=== PATIENT | male | born 1955 | race Two or more races ===

== ENCOUNTER 2016-04-29 18:23 | Emergency (ER) | payer BC ==
[2016-04-29 18:40] VITALS: RESP 16
--- NOTE | 2016-04-29 18:42 | CPEKG ---
Heart Rate: 56 RR Interval: 1071 P-R Interval: 192 QRSD Interval: 122 QT Interval: 436 QTC Interval: 421 P [place]: 41 QRS [place]: 41 T Wave [place]: 48 EKG Severity - ABNORMAL ECG - EKG Impression: SINUS RHYTHM EKG Impression: NONSPECIFIC INTRAVENTRICULAR CONDUCTION DELAY EKG Impression: Unchanged from previous Electronically Signed By: Mamadou Sharp 29-Apr-2016 19:04:26
[2016-04-29] MEDS ORDERED: NS 1,000 ML IV ONE (18:53)
--- NOTE | 2016-04-29 19:01 | EDPHY ---
H & P Stated Complaint: Chills x 3 hours;arms shakey/numb;Scheduled for card cath next week Time Seen by Provider: 04/29/16 18:38 HPI/ROS: CHIEF COMPLAINT: Chills HISTORY OF PRESENT ILLNESS: Patient is a 60-year-old man who comes to the emergency department complaining of chills and bilateral arm tingling intermittently over the last 2 hours. He states that he was sitting at the computer after dinner when they began. This feels similar to something he had in 2015 prior to his initial myocardial infarction complicated by a failed catheterization and subsequent 3 vessel CABG. He states that they have been following his cardiac function since that time and he has had steadily decreasing heart efficiency. According to the medical record he did have a stress test last year that revealed a large lateral infarct with a decreased ejection fraction. Echo however showed a unchanged ejection fraction of 35%. He has a cardiac catheterization scheduled with Dr. Lennon on Sunday for further evaluation. He is currently asymptomatic. He has not had a fever. He did have a mild sore throat this morning but has not since. No cough runny nose or shortness of breath. No hyperventilation. REVIEW OF SYSTEMS: Constitutional: denies: chills, fever, recent illness, recent injury EENTM: denies: blurred vision, double vision, nose congestion Respiratory: denies: cough, shortness of breath Cardiac: See HPI Gastrointestinal/Abdominal: denies: abdominal pain, diarrhea, nausea, vomiting, blood streaked stools Genitourinary: denies: dysuria, frequency, hematuria, pain Musculoskeletal: denies: joint pain, muscle pain Skin: denies: lesions, rash, jaundice, bruising Neurological: denies: headache, numbness, paresthesia, tingling, dizziness, weakness Hematologic/Lymphatic: denies: blood clots, easy bleeding, easy bruising Immunologic/allergic: denies: HIV/AIDS, transplant EXAM: GENERAL: Well-appearing, well-nourished and in no acute distress. HEAD: Atraumatic, normocephalic. EYES: Pupils equal round and reactive to light, extraocular movements intact, sclera anicteric, conjunctiva are normal. ENT: TMs normal, nares patent, oropharynx clear without exudates. Moist mucous membranes. NECK: Normal range of motion, supple without lymphadenopathy or JVD. LUNGS: Breath sounds clear to auscultation bilaterally and equal. No wheezes rales or rhonchi. HEART: Regular rate and rhythm without murmurs, rubs or gallops. ABDOMEN: Soft, nontender, normoactive bowel sounds. No guarding, no rebound. No masses appreciated. BACK: No CVA tenderness, no spinal tenderness, step-offs or deformities EXTREMITIES: Normal range of motion, no pitting or edema. No clubbing or cyanosis. NEUROLOGICAL: Cranial nerves II through XII grossly intact. Normal speech, normal gait. 5/5 strength, normal movement in all extremities, normal sensation PSYCH: Normal mood, normal affect. SKIN: Warm, dry, normal turgor, no visible rashes or lesions. Source: Patient Exam Limitations: No limitations - Personal History Current Tetanus Diphtheria and Acellular Pertussis (TDAP): Unsure - Medical/Surgical History Hx Asthma: Yes Hx Chronic Respiratory Disease: No Hx Diabetes: No Hx Cardiac Disease: Yes Hx Renal Disease: No Hx Cirrhosis: No Hx Alcoholism: No Hx HIV/AIDS: No Hx Splenectomy or Spleen Trauma: No Other PMH: PMH: DC 2007; spinal stenosis L4-L5;. PSH: r knee - Family History Significant Family History: Hypertension - Social History Smoking Status: Never smoked Alcohol Use: Sober Drug Use: None Constitutional: Initial Vital Signs Temperature (C) 36.5 C 04/29/16 18:25 Heart Rate 59 L 04/29/16 18:25 Respiratory Rate 16 04/29/16 18:25 Blood Pressure 161/105 H 04/29/16 18:25 O2 Sat (%) 98 04/29/16 18:25 O2 Delivery Mode Room Air Allergies/Adverse Reactions: paroxetine HCl [From Paxil] Allergy (Intermediate, Verified 04/29/16 18:29) bad heartburn Penicillins Allergy (Intermediate, Verified 04/29/16 18:24) Hives atorvastatin calcium [From Lipitor] Allergy (Mild, Verified 04/29/16 18:29) muscle pain Home Medications: Medication Instructions Recorded Aspirin [Aspirin 81mg (*)] 81 mg PO DAILY@02/23/15 Lovastatin 20 mg PO DAILY@01/18/16 Clopidogrel Bisulfate [Plavix (*)] 75 mg PO DAILY@01/19/16 Carvedilol [Coreg (*)] 3.125 mg PO BIDMEAL #60 tab 01/20/16 Omeprazole Magnesium [Prilosec Otc] 20 mg PO DAILY #30 tablet. 01/20/16 AZITHROMYCIN [Z-PACK] 250 mg PO DAILY #4 tab 04/29/16 Supplements 04/29/16 Medical Decision Making - Diagnostics EKG Interpretation: An EKG obtained and was read and documented in trace view. Please see trace view for full reading and report., nonspecific interventricular conduction delay unchanged from previous . ED Course/Re-evaluation: The patient's x-ray is consistent with bronchitis. This is consistent with his chills. This does not explain his bilateral arm paresthesias although I suspect he was hyperventilating as does his . I will treat him with azithromycin. I offered observation and 2nd troponin but he is declined. They state they will return if he begins having chest pain symptoms or if his symptoms worsen. Differential Diagnosis: Partial list of the Differential diagnosis considered include but were not limited to; bronchitis, acute coronary disease, reflux and although unlikely based on the history and physical exam, I also considered anxiety, dissection, aneurysm, P. I discussed these differential diagnoses and the plan with the patient as well as the usual and expected course. The patient understands that the diagnosis is provisional and that in medicine we are not always correct and that further workup is often warranted. Usual and customary warnings were given. All of the patient's questions were answered. The patient was instructed to return to the emergency department should the symptoms at all worsen or return, otherwise to followup with the physician as we discussed. - Data Points Laboratory Results: Laboratory Results 04/29/16 18:45 04/29/16 18:45 04/29/16 04/29/16 04/29/16 Unknown 19:15 18:45 WBC 6.12 10^3/uL (3.80-9.50) RBC 5.07 10^6/uL (4.40-6.38) Hgb 16.1 g/dL (13.7-17.5) Hct 44.9 % (40.0-51.0) MCV 88.6 fL (81.5-99.8) MCH 31.8 pg (27.9-34.1) MCHC 35.9 g/dL (32.4-36.7) RDW 12.9 % (11.5-15.2) Plt Count 135 L 10^3/uL (150-400) MPV 13.5 H fL (8.7-11.7) Neut % (Auto) 64.2 % (39.3-74.2) Lymph % (Auto) 27.0 % (15.0-45.0) Leon % (Auto) 6.9 % (4.5-13.0) Eos % (Auto) 1.1 % (0.6-7.6) Baso % (Auto) 0.3 % (0.3-1.7) Nucleat RBC Rel Count 0.0 % (0.0-0.2) Absolute Neuts (auto) 3.93 10^3/uL (1.70-6.50) Absolute Lymphs (auto) 1.65 10^3/uL (1.00-3.00) Absolute Monos (auto) 0.42 10^3/uL (0.30-0.80) Absolute Eos (auto) 0.07 10^3/uL (0.03-0.40) Absolute Basos (auto) 0.02 10^3/uL (0.02-0.10) Absolute Nucleated RBC 0.00 10^3/uL (0-0.01) Immature Gran % 0.5 % (0.0-1.1) Immature Gran # 0.03 10^3/uL (0.00-0.10) PT 13.8 SEC (12.0-15.0) INR 1.07 (0.83-1.16) APTT 24.1 SEC (23.0-38.0) Sodium 142 mEq/L (134-144) Potassium 4.0 mEq/L (3.5-5.2) Chloride 108 mEq/L (97-110) Carbon Dioxide 23 mEq/l (22-31) Anion Gap 11 mEq/L (8-16) BUN 17 mg/dL (7-23) Creatinine 0.9 mg/dL (0.7-1.3) Estimated GFR > 60 Glucose 105 H mg/dL (70-100) Calcium 8.9 mg/dL (8.5-10.4) Troponin I 0.024 ng/mL (0-0.034) NT-Pro-B Natriuret Pep 138 H pg/mL (0-125) Influenza Typ A,B (DFA) NEGATIVE FOR FLU (NEGATIVE) Group A Strep Screen NEGATIVE (NEGATIVE) Group A Strep DNA Pending Medications Given: Discontinued Medications Azithromycin (Zithromax) 500 mg PO EDNOW ONE PRN Reason: Protocol Stop: 04/29/16 20:06 Last Admin: 04/29/16 20:14 Dose: 500 mg Sodium Chloride (Ns) 1,000 mls @ 0 mls/hr IV ONCE ONE PRN Reason: Wide Open Stop: 04/29/16 18:54 Last Admin: 04/29/16 19:13 Dose: 1,000 mls Departure - Departure Disposition: Home, Routine, Self-Care Clinical Impression: Bronchitis Condition: Fair Instructions: Acute Bronchitis (ED) Referrals: Benja Patel MD [Primary Care Provider] - As per Instructions Prescriptions: AZITHROMYCIN [Z-PACK] 250 mg PO DAILY #4 tab
[2016-04-29 19:05] LABS: % IMMATURE GRANULYOCYTES 0.5 % (0.0-1.1); ABSOLUTE IMMATURE GRANULOCYTES 0.03 10^3/uL (0.00-0.10); ADD DIFF? NO; ADD MORPH? NO; ADD SCAN? NO; ATYPICAL LYMPHOCYTE FLAG 0 (0-99); FRAGMENT RBC FLAG 0 (0-99); HEMATOCRIT 44.9 % (40.0-51.0); HEMOGLOBIN 16.1 g/dL (13.7-17.5); LEFT SHIFT FLG 0 (0-99); LIPEMIA HEMOLYSIS FLAG 90 (0-99); MEAN CELL HEMOGLOBIN 31.8 pg (27.9-34.1); MEAN CELL HEMOGLOBIN CONCENTR. 35.9 g/dL (32.4-36.7); MEAN CELL VOLUME 88.6 fL (81.5-99.8); MEAN PLATELET VOLUME 13.5 fL (8.7-11.7); PLATELET CLUMPS FLAG 20 (0-99); PLATELET COUNT 135 10^3/uL (150-400); RED BLOOD CELL COUNT 5.07 10^6/uL (4.40-6.38); RED CELL DISTRIBUTION WIDTH 12.9 % (11.5-15.2)
[2016-04-29 19:14] LABS: APTT 24.1 SEC (23.0-38.0); INR 1.07 (0.83-1.16); PROTIME(PATIENT) 13.8 SEC (12.0-15.0)
[2016-04-29 19:25] LABS: ANION GAP 11 mEq/L (8-16); CALCIUM 8.9 mg/dL (8.5-10.4); CARBON DIOXIDE 23 mEq/l (22-31); CHLORIDE 108 mEq/L (97-110); CREATININE 0.9 mg/dL (0.7-1.3); GLOMERULAR FILTRATION RATE > 60; GLUCOSE 105 mg/dL (70-100); SODIUM 142 mEq/L (134-144)
[2016-04-29 19:37] LABS: TROPONIN I 0.024 ng/mL (0-0.034)
--- NOTE | 2016-04-29 19:46 | DX ---
Chest, PA and Lateral April 29, 2016 History: Chest pain. Chills. Comparison: January 2016. Findings: Heart size is upper limits of normal and stable. Postsurgical changes are seen of prior ope n heart surgery. Mild peribronchial wall thickening is seen bilaterally. No evidence for acute airspa ce consolidation. No evidence for pleural effusion or pneumothorax. Impression: Mild bronchitis. No other findings for acute cardiopulmonary abnormality.
[2016-04-29] MEDS ORDERED: AZITHROMYCIN 250 MG TAB PO ONE ×2 (20:02→20:05)
[2016-04-29 20:04] VITALS: BP 119/88; PULSE 74; TEMP 98.2; O2SAT 96
== END 2016-04-29 20:14 | disposition home or self-care (01) ==
DX: J20.9 Acute bronchitis, unspecified (principal); I25.2 Old myocardial infarction; J45.909 Unspecified asthma, uncomplicated; Z79.82 Long term (current) use of aspirin

== ENCOUNTER 2016-05-03 09:08 | Day surgery (SDC) | payer BC ==
[2016-05-03] MEDS ORDERED: FAMOTIDINE 20 MG TAB PO ONE (09:11)
[2016-05-03] MEDS ORDERED: DIAZEPAM 5 MG TAB PO ONE (09:11)
[2016-05-03] MEDS ORDERED: ASPIRIN EC 325 MG TAB PO ONE ×2 (09:11→09:48)
[2016-05-03] MEDS ORDERED: diphenhydrAMINE 25 MG CAP PO ONE ×2 (09:11→09:48)
[2016-05-03] MEDS ORDERED: NS 1,000 ML IV ONE (09:11)
[2016-05-03] MEDS ORDERED: FAMOTIDINE 20 MG TAB ONE (09:48)
[2016-05-03] MEDS ORDERED: DIAZEPAM 5 MG TAB ONE (09:49)
[2016-05-03 09:54] LABS: % IMMATURE GRANULYOCYTES 0.3 % (0.0-1.1); ABSOLUTE IMMATURE GRANULOCYTES 0.01 10^3/uL (0.00-0.10); ADD DIFF? NO; ADD MORPH? NO; ADD SCAN? NO; ATYPICAL LYMPHOCYTE FLAG 0 (0-99); FRAGMENT RBC FLAG 0 (0-99); HEMATOCRIT 43.3 % (40.0-51.0); HEMOGLOBIN 15.4 g/dL (13.7-17.5); LEFT SHIFT FLG 0 (0-99); LIPEMIA HEMOLYSIS FLAG 90 (0-99); MEAN CELL HEMOGLOBIN 31.5 pg (27.9-34.1); MEAN CELL HEMOGLOBIN CONCENTR. 35.6 g/dL (32.4-36.7); MEAN CELL VOLUME 88.5 fL (81.5-99.8); PLATELET CLUMPS FLAG 0 (0-99); PLATELET COUNT 132 10^3/uL (150-400); RED BLOOD CELL COUNT 4.89 10^6/uL (4.40-6.38); RED CELL DISTRIBUTION WIDTH 12.8 % (11.5-15.2)
[2016-05-03 10:02] LABS: INR 1.1 (0.83-1.16); PROTIME(PATIENT) 14.1 SEC (12.0-15.0)
--- NOTE | 2016-05-03 10:04 | CPEKG ---
Heart Rate: 56 RR Interval: 1071 P-R Interval: 204 QRSD Interval: 120 QT Interval: 436 QTC Interval: 421 P [place]: 26 QRS [place]: 18 T Wave [place]: 31 EKG Severity - ABNORMAL ECG - EKG Impression: SINUS RHYTHM EKG Impression: PROBABLE LEFT ATRIAL ABNORMALITY EKG Impression: NONSPECIFIC INTRAVENTRICULAR CONDUCTION DELAY Electronically Signed By: Reena Brunner 03-May-2016 14:38:02
[2016-05-03 10:21] LABS: ANION GAP 9 mEq/L (8-16); CALCIUM 9.2 mg/dL (8.5-10.4); CARBON DIOXIDE 23 mEq/l (22-31); CHLORIDE 109 mEq/L (97-110); CHOLESTEROL 159 mg/dL (140-220); CHOLESTEROL/HDL RATIO 3.38 RATIO (1.00-4.97); CREATININE 0.9 mg/dL (0.7-1.3); GLOMERULAR FILTRATION RATE > 60; GLUCOSE 94 mg/dL (70-100); HIGH DENSITY LIPOPROTEIN 47 mg/dL (40-65); LDL/HDL RATIO 1.91 RATIO (1.00-3.64); LOW DENSITY LIPOPROTEIN 90 mg/dL (80-100); NON-HIGH DENSITY LIPOPROTEIN 112 mg/dL (90-129); POTASSIUM 4.2 mEq/L (3.5-5.2); SODIUM 141 mEq/L (134-144); TRIGLYCERIDE 110 mg/dL (40-150); VERY LOW DENSITY LIPOPROTEINS 22 mg/dL (8-25)
[2016-05-03] MEDS ORDERED: LIDOCAINE 1% 30 ML SDV ONE (12:00)
[2016-05-03] MEDS ORDERED: IOPAMIDOL (ISOVUE-370) 150 ML BTL IV ONE ×3 (12:01→12:44)
[2016-05-03] MEDS ORDERED: VERAPAMIL 5 MG/2 ML VIAL ONE (12:01)
[2016-05-03] MEDS ORDERED: fentaNYL 100 MCG/2 ML INJ ONE (12:04)
[2016-05-03] MEDS ORDERED: MIDAZOLAM 2 MG/2 ML VIAL ONE (12:05)
[2016-05-03] MEDS ORDERED: HEPARIN 10,000 UNIT/10 ML MDV ONE (12:05)
[2016-05-03] MEDS ORDERED: ATROPINE SULFATE 1 MG/10 ML SYR IVP PRN (13:42)
[2016-05-03] MEDS ORDERED: OXYCODONE/APAP 5/325 TAB PO PRN (13:42)
[2016-05-03] MEDS ORDERED: HYDROCODONE/APAP 5/325 TAB PO PRN (13:42)
[2016-05-03] MEDS ORDERED: NITROGLYCERIN 0.4 MG BTL SL PRN (13:42)
[2016-05-03] MEDS ORDERED: ONDANSETRON 4 MG/2 ML VIAL IVP PRN (13:42)
--- NOTE | 2016-05-03 13:54 | PDDXCAT ---
Diagnostic Cath Note - . Date: 05/03/16 Dental Practitioner: Saji High-risk criteria on non-invasive testing: severe resting left ventricular dysfunction (LVEF<35%) - Procedure Access: left wrist Procedure: left heart catheterization, coronary angiography, left ventriculogram , vein graft injection, LAGOS injection - Materials Left Heart Cath size: 5F Left Heart Cath materials: JL3.5, JR4.0, pigtail, other (VIRAJ catheter) - Findings-Left Heart Catheterization LM: Short unobstructed LAD: severe proximal ectasia with 100% occlusion in the midportion LCX: compared to prior angiogram the circumflex artery has recanalized. It is severely ectatic proximally with 85% critical stenosis at bifurcation. Diffuse distal disease with ectasia noted RCA: severely ectatic proximally with SOLO grade 2 flow. Diffuse luminal irregularities of up to 50%. rSVG: Saphenous vein graft to the PDA occluded. Saphenous vein graft to the LAD widely patent. LAGOS: Mammary artery to the circumflex widely patent EDP: 12mmHg LVEF: 40% Wall motion: inferior akinesis Complications: none Estimated blood loss: <50ml Closure method: TR Band Assessment: 1.multi-vessel ectatic atherosclerotic cardiovascular disease versus [place] is. 2. complete revascularization with patent mammary artery to the circumflex, patent vein graft to the LAD. 3. inferior akinesis with ejection fraction of 40% and normal filling pressures Plan: medical therapy. Patient Problems: Problems Problem Status Diagnosed Anemia due to acute blood loss Acute CAD (coronary artery disease), [place] coronary artery Acute Chest pain Acute Elevated troponin Acute Ischemic cardiomyopathy Acute NSTEMI (non-ST elevated myocardial infarction) Acute Thrombocytopenia due to blood loss Acute Chest pain at rest Acute
== END 2016-05-03 17:31 | disposition home or self-care (01) ==
LOC: FCATH 09:08
PROVIDERS: ATTEND Internal Medicine Interventional Cardiology
PROC: B2151ZZ Fluoroscopy of Left Heart using Low Osmolar Contrast (ICD-10-PCS; principal; 2016-05-03)
PROC: B2181ZZ Fluoroscopy of Left Internal Mammary Bypass Graft using Low Osmolar Contrast (ICD-10-PCS; principal; 2016-05-03)
PROC: B21F1ZZ Fluoroscopy of Other Bypass Graft using Low Osmolar Contrast (ICD-10-PCS; principal; 2016-05-03)
PROC: B2111ZZ Fluoroscopy of Multiple Coronary Arteries using Low Osmolar Contrast (ICD-10-PCS; principal; 2016-05-03)
PROC: 4A023N7 Measurement of Cardiac Sampling and Pressure, Left Heart, Percutaneous Approach (ICD-10-PCS; principal; 2016-05-03)
DX: I51.9 Heart disease, unspecified (principal); I25.10 Atherosclerotic heart disease of native coronary artery without angina pectoris; I10 Essential (primary) hypertension; E78.00 Pure hypercholesterolemia, unspecified; I25.2 Old myocardial infarction; Z95.1 Presence of aortocoronary bypass graft; Z79.82 Long term (current) use of aspirin; Z88.0 Allergy status to penicillin
CPT/HCPCS: J1644; J2250; J3010; Q9967

== ENCOUNTER 2018-01-22 06:31 | Day surgery (SDC) | payer BC ==
[2018-01-22] MEDS ORDERED: NS 1,000 ML IV ONE (06:32)
[2018-01-22] MEDS ORDERED: diphenhydrAMINE 25 MG CAP PO ONE ×2 (06:32→06:59)
[2018-01-22] MEDS ORDERED: DIAZEPAM 5 MG TAB PO ONE (06:32)
[2018-01-22] MEDS ORDERED: FAMOTIDINE 20 MG TAB PO ONE (06:32)
[2018-01-22] MEDS ORDERED: ASPIRIN EC 325 MG TAB PO ONE ×2 (06:32→07:00)
[2018-01-22] MEDS ORDERED: DIAZEPAM 5 MG TAB ONE (07:00)
[2018-01-22] MEDS ORDERED: FAMOTIDINE 20 MG TAB ONE (07:00)
[2018-01-22 07:15] LABS: PLATELET COUNT 120 10^3/uL (150-400)
[2018-01-22 07:24] LABS: INR 1.05 (0.83-1.16); PROTIME(PATIENT) 13.9 SEC (12.0-15.0)
[2018-01-22] MEDS ORDERED: fentaNYL 100 MCG/2 ML INJ ONE (07:51)
[2018-01-22] MEDS ORDERED: LIDOCAINE 1% 300 MG/30 ML SDV ONE (07:51)
[2018-01-22] MEDS ORDERED: VERAPAMIL 5 MG/2 ML VIAL ONE (07:52)
[2018-01-22] MEDS ORDERED: MIDAZOLAM 2 MG/2 ML VIAL ONE (07:52)
[2018-01-22] MEDS ORDERED: IOPAMIDOL (ISOVUE-370) 150 ML BTL IV ONE (07:52)
[2018-01-22] MEDS ORDERED: HEPARIN 10,000 UNIT/10 ML MDV (1,000 UNIT/ML) ONE (07:52)
--- NOTE | 2018-01-22 08:02 | PDPROPOC ---
Sedation Plan of Care Sedation Plan of Care: vital signs stable, mental status noted, patient educated of risks, benefits, alternatives, patient can tolerate sedation ASA Classification: ASA 2 Planned drugs: fentanyl, midazolam Mallampati Score: Class 2 Mallampati Reference Image: Patient passed 3-3-2 rule?: Yes
--- NOTE | 2018-01-22 08:02 | PDHPUP ---
History & Physical Update H&P update statement: This history and physical update is based on an assessment of the patient which was completed after admission or registration (within 24 hours), but prior to the surgery/procedure. H&P update: H&P reviewed & patient examined, no change in patient's condition since H&P completed
--- NOTE | 2018-01-22 08:56 | PDDXCAT ---
Diagnostic Cath Note - . Date: 01/22/18 Machine Chain Maker: Saji High-risk criteria on non-invasive testing: stress-induced mod-size perf defect w LV dilatation or inc lung uptake - Procedure Access: left wrist Procedure: left heart catheterization, coronary angiography, left ventriculogram , vein graft injection, LAGOS injection - Materials Left Heart Cath size: 5F Left Heart Cath materials: JL3.5, JR4.0, pigtail - Findings-Left Heart Catheterization LM: unobstructed LAD: Ectatic, 100% occluded mid vessel. LCX: Ectatic with re-canalization. RCA: Ectatic with proximal aneursym. rSVG: patent to LAD with ectasia LAGOS: patent to OM with distal atresia EDP: 12 mmHg LVEF: Global hypokinesis with EF of 45% Complications: none Estimated blood loss: <50ml Closure method: TR Band Assessment: Complete revascularization with severe ectasia of all three major cors. Mild to moderate reduction of LV systolic function with normal filling pressures. Plan: Clear for non-cardiac surgery. Continued medical therapy with aggressive secondary prevention. Patient Problems: Problems Problem Status Onset Elevated troponin Acute Chest pain Acute NSTEMI (non-ST elevated myocardial infarction) Acute CAD (coronary artery disease), [place] coronary artery Acute Ischemic cardiomyopathy Acute Thrombocytopenia due to blood loss Acute Anemia due to acute blood loss Acute Chest pain at rest Acute
[2018-01-22] MEDS ORDERED: NITROGLYCERIN 0.4 MG BTL SL PRN (08:58)
--- NOTE | 2018-01-24 09:14 | CPEKG ---
Test Reason : OPEN Blood Pressure : / mmHG Vent. Rate : 049 BPM Atrial Rate : 049 BPM P-R Int : 205 ms QRS Dur : 128 ms QT Int : 453 ms P-R-T Axes : 037 050 036 degrees QTc Int : 409 ms Sinus bradycardia Probable left atrial enlargement Nonspecific intraventricular conduction delay Confirmed by Dmitriy Castellanos ([id number]) on 01/24/2018 9:13:46 AM Referred By: Confirmed By:Dmitriy Castellanos
== END 2018-01-22 13:00 | disposition home or self-care (01) ==
LOC: FCATH 06:31
PROVIDERS: ATTEND Internal Medicine Interventional Cardiology
DX: I25.10 Atherosclerotic heart disease of native coronary artery without angina pectoris (principal); I25.2 Old myocardial infarction; Z95.1 Presence of aortocoronary bypass graft; I10 Essential (primary) hypertension; E78.00 Pure hypercholesterolemia, unspecified
CPT/HCPCS: 93005; 93459; C1769; J1644; J2250; J3010; Q9967